=== PATIENT | male | born 2000 | race Caucasian/White ===

== ENCOUNTER 2018-09-07 23:33 | Emergency (ER) | payer MEDICAID, SELFPAY ==
[2018-09-07 23:37] VITALS: BP 146/72; PULSE 78; RESP 16; TEMP 37.2; O2SAT 98
--- NOTE | 2018-09-07 23:49 | DI.RAD_ITS ---
SYMPTOM/DIAGNOSIS: PAIN LATAERAL, FELL ON ELBOW EARLIER TODAY RIGHT ELBOW: No fracture or joint effusion is seen. IMPRESSION: Negative right elbow.
--- NOTE | 2018-09-07 23:51 | W.ED.GENAD ---
Discharge Plan Disposition Patient Disposition: HOME Discharge Details Chief Complaint: Orthopedic Clinical Impression: Contusion of elbow, right Primary Care Provider: Yan Hernandez ED Provider: Greg Lawrence Home Meds and New Rx's Prescriptions: No Action fluoxetine [Prozac] 10 mg Capsule 1 tab PO DAILY RF: 0 Discharge Instructions Instructions: Contusion in Adults (ED) Additional Instructions: Please use sling for comfort. Take Tylenol for pain-dose according to label. Please contact your primary care physician to arrange follow-up. Return to the ER for any worsening or new concerning symptoms. Referrals: Yan Hernandez [Primary Care Provider] - Discharge Data Discharge Date/Time-TO BE ENTERED AT DEPARTURE: 09/08/18 00:27 Medical Decision Making 17-year-old male who presents with right lateral elbow pain after fall on ice earlier today. Neurovascular intact distally. Considered fracture. X-ray of the elbow reviewed and interpreted by radiology: Negative. Suspect elbow contusion. Will provide sling for comfort. Patient given Tylenol for analgesia. Patient was advised to follow-up with his primary care physician should pain persist for more than a few days. I encouraged him to return to the ER should he have any worsening or new concerning symptoms. HPI General Mode of arrival: ambulatory. Date/Time Provider Initiated Documentation: 09/07/18 23:49. Limitations to Documentation: no limitations. Information obtained by: patient. HPI Narrative: 17-year-old male presents with chief complaint of elbow pain. Patient notes he was ice skating and slipped and fell on his right elbow earlier this afternoon. Over the course of the evening patient noted worsening pain in his right lateral elbow. Pain seems to radiate in his forearm and up his lateral arm with movements of his elbow. No associated numbness or weakness. No other injury. Related Data Home Medications Medication Instructions Recorded Confirmed fluoxetine [Prozac] 1 tab PO DAILY 09/07/18 09/07/18 Allergies Allergy/AdvReac Type Severity Reaction Status Date / Time No Known Allergies Allergy Unverified 09/07/18 23:36 General Stated Complaint: Orthopedic KARINA: 4 Review of Systems Musculoskeletal Reports as per HPI Neurologic Reports as per HPI [facility] Social History Smoking/Tobacco Use Status: Never Exam Const General: cooperative, healthy appearing, comfortable and no acute distress Neuro General: alert and awake Sensory Exam: no sensory deficits noted (distal RUE) Extrem Right upper extremity: shoulder/upper arm Details: normal to inspection, elbow/forearm Details: tenderness Location: of the lateral epicondyle, normal ROM and distal pulses intact; no swelling, no crepitus and no deformity and wrist Details: normal to inspection Course Vital Signs Temperature 37.2 C 09/07/18 23:37 Pulse 78 09/07/18 23:37 Respiratory Rate 16 09/07/18 23:37 Blood Pressure 146/72 H 09/07/18 23:37 Pulse Oximetry 98 09/07/18 23:37 Temperature 37.2 C 09/07/18 23:37 Temperature Source Temporal Artery Scan 09/07/18 23:37 Pulse 78 09/07/18 23:37 Respiratory Rate 16 09/07/18 23:37 Respiratory Effort 09/07/18 23:37 Blood Pressure 146/72 H 09/07/18 23:37 Blood Pressure Position Sitting 09/07/18 23:37 Pulse Oximetry 98 09/07/18 23:37 Oxygen Delivery Method Room Air 09/07/18 23:37 Oxygen Flow Rate 0 09/07/18 23:37 Pain Level 6 09/07/18 23:40
[2018-09-07] MEDS: Acetaminophen 325 MG TAB 650 MG PO (23:54)
--- NOTE | 2018-09-07 23:55 | ED.GENADUL_ITS ---
Discharge Plan Disposition Patient Disposition: HOME Discharge Details Chief Complaint: Orthopedic Clinical Impression: Contusion of elbow, right Primary Care Provider: Yan Hernandez ED Provider: Greg Lawrence Home Meds and New Rx's Prescriptions: No Action fluoxetine [Prozac] 10 mg Capsule 1 tab PO DAILY RF: 0 Discharge Instructions Instructions: Contusion in Adults (ED) Additional Instructions: Please use sling for comfort. Take Tylenol for pain-dose according to label. Please contact your primary care physician to arrange follow-up. Return to the ER for any worsening or new concerning symptoms. Referrals: Yan Hernandez [Primary Care Provider] - Discharge Data Discharge Date/Time-TO BE ENTERED AT DEPARTURE: 09/08/18 00:27 Medical Decision Making 17-year-old male who presents with right lateral elbow pain after fall on ice earlier today. Neurovascular intact distally. Considered fracture. X-ray of the elbow reviewed and interpreted by radiology: Negative. Suspect elbow contusion. Will provide sling for comfort. Patient given Tylenol for analgesia. Patient was advised to follow-up with his primary care physician should pain persist for more than a few days. I encouraged him to return to the ER should he have any worsening or new concerning symptoms. HPI General Mode of arrival: ambulatory . Date/Time Provider Initiated Documentation: 09/07/18 23:49 . Limitations to Documentation: no limitations . Information obtained by: patient . HPI Narrative: 17-year-old male presents with chief complaint of elbow pain. Patient notes he was ice skating and slipped and fell on his right elbow earlier this afternoon. Over the course of the evening patient noted worsening pain in his right lateral elbow. Pain seems to radiate in his forearm and up his lateral arm with movements of his elbow. No associated numbness or weakness. No other injury. Related Data Home Medications Medication Instructions Recorded Confirmed fluoxetine [Prozac] 1 tab PO DAILY 09/07/18 09/07/18 Allergies Allergy/AdvReac Type Severity Reaction Status Date / Time No Known Allergies Allergy Unverified 09/07/18 23:36 General Stated Complaint: Orthopedic KARINA: 4 Review of Systems Musculoskeletal Reports as per HPI Neurologic Reports as per HPI [facility] Social History Smoking/Tobacco Use Status: Never Exam Const General: cooperative, healthy appearing, comfortable and no acute distress Neuro General: alert and awake Sensory Exam: no sensory deficits noted (distal RUE) Extrem Right upper extremity: shoulder/upper arm Details: normal to inspection, elbow/forearm Details: tenderness Location: of the lateral epicondyle, normal ROM and distal pulses intact; no swelling, no crepitus and no deformity and wrist Details: normal to inspection Course Vital Signs Temperature 37.2 C 09/07/18 23:37 Pulse 78 09/07/18 23:37 Respiratory Rate 16 09/07/18 23:37 Blood Pressure 146/72 H 09/07/18 23:37 Pulse Oximetry 98 09/07/18 23:37 Temperature 37.2 C 09/07/18 23:37 Temperature Source Temporal Artery Scan 09/07/18 23:37 Pulse 78 09/07/18 23:37 Respiratory Rate 16 09/07/18 23:37 Respiratory Effort 09/07/18 23:37 Blood Pressure 146/72 H 09/07/18 23:37 Blood Pressure Position Sitting 09/07/18 23:37 Pulse Oximetry 98 09/07/18 23:37 Oxygen Delivery Method Room Air 09/07/18 23:37 Oxygen Flow Rate 0 09/07/18 23:37 Pain Level 6 09/07/18 23:40
--- NOTE | 2018-09-08 00:08 | DI.VRAD_ITS ---
EXAM: XR Right Elbow Complete, 3 or more Views EXAM DATE/TIME: 09/07/2018 11:50 PM CLINICAL HISTORY: 17 years old, male; Pain; Elbow; Right; Patient HX: Lateral elbow pain, fell on elbow on ice earlier today. TECHNIQUE: XR Right of the elbow, 3 or more views. COMPARISON: No relevant prior studies available. FINDINGS: Bones/joints: Normal. Soft tissues: Normal. IMPRESSION: No acute findings. Dictated and Authenticated by: Elton Christianson MD. Ordering:VIOLETA GOODWIN MD
== END 2018-09-08 00:27 | disposition home or self-care (01) ==
LOC: ER 09-08 00:31
PROVIDERS: Emergency Provider Student in an Organized Health Care Education/Training Program; PCP Pediatrics
DX: S50.01XA Contusion of right elbow, initial encounter (principal); W00.0XXA Fall on same level due to ice and snow, initial encounter; Y93.21 Activity, ice skating
CPT/HCPCS: 99283; 73080; L3650